=== PATIENT | female | born 1935 | race Caucasian/White ===

== ENCOUNTER 2019-06-16 21:05 | Inpatient (IN) | payer OTHER, MEDICAID ==
[~2019-06-16] VITALS: Ht 152.4 cm; Wt 16.2 kg
[~2019-06-16 21:05] MED LIST: ALBUAER3 IN; ASPI-404 PO; ASPI81CH43 PO; ATOR20TA50 PO; CHOL20007 PO; FAM20T PO; FURO1TAB31 PO; LEVO250T19 PO; LISI10TA6 PO; MET25T PO; POTA-220 PO
[2019-06-16 21:42] LABS: Basophils # (auto) 0 uL; Basophils % (auto) 0.4 % (0.0-2.0); Eosinophils # (auto) 0.1 uL; Eosinophils % (auto) 1.5 % (0.0-7.0); Hematocrit 36.8 % (36.0-46.0); Hemoglobin 11.8 g/dL (12.2-16.2); Lymphocytes # (auto) 1.1 uL; Lymphocytes % (auto) 13.9 % (10.0-50.0); Mean Corpuscular Hemoglobin 27.8 pg (28.0-32.0); Mean Corpuscular Hgb Conc. 32.1 g/dL (32.0-36.0); Mean Corpuscular Volume 86.8 fL (80.0-100.0); Monocytes # (auto) 0.7 uL; Monocytes % (auto) 9.1 % (0.0-12.0); Neutrophils # (auto) 6.2 uL; Neutrophils % (auto) 75.1 % (37.0-80.0); Platelet Count (auto) 288 10^3/uL (140-450); Red Blood Cells 4.24 10^6/uL (4.0-5.20); Red Cell Distribution Width 15.5 % (11.8-14.3); White Blood Cell 8.2 10^3/uL (4.4-10.8)
[2019-06-16 22:04] LABS: Albumin 2.4 g/dL (3.4-5.0); Anion Gap 4 (5-15); Blood Urea Nitrogen 17 mg/dL (7-18); Calcium 8.1 mg/dL (8.5-10.1); Carbon Dioxide 32 mmol/L (21-32); Chloride 104 mmol/L (98-107); Glucose 113 mg/dL (74-106); Magnesium 2.4 mg/dL (1.6-2.6); Potassium 3.6 mmol/L (3.5-5.1); Sodium 140 mmol/L (136-145)
[2019-06-16 22:10] LABS: Alanine Aminotransferase 8 U/L (13-56); Alkaline Phosphatase 83 U/L (45-117); Aspartate Aminotransferase 12 U/L (15-37); BUN/Creatinine Ratio 22.7; Bilirubin, Total 0.5 mg/dL (0.2-1.0); GFR African American 95 mL/min; GFR Non-African American 78 mL/min; Total Protein 6.5 g/dL (6.4-8.2)
[2019-06-17] MEDS ORDERED: ALBUTEROL SULF 2.5 MG/0.5ML(0.5%) NEB SOLN NEB ONE (05:30)
[2019-06-17] MEDS ORDERED: IPRATROPIUM BROM 0.5 MG/2.5ML INH SOL NEB ONE (05:30)
[2019-06-17] MEDS ORDERED: methylPREDNISolone SOD SUCC 125 MG/2 ML VL IV ONE (05:30)
[2019-06-17] MEDS ORDERED: MORPHINE SULF INJ 2 MG/ML SYRINGE 1ML IV PRN (06:00)
[2019-06-17] MEDS ORDERED: FUROSEMIDE 20 MG/2 ML VIAL IV ONE ×2 (06:00→13:00)
[2019-06-17] MEDS ORDERED: NITROGLYCERIN 0.4 MG SL TAB SL PRN (06:00)
[2019-06-17 06:18] VITALS: BP 129/61
[2019-06-17] MEDS: BUDESONIDE (INHALATION) 0.5 MG/2 ML NEB NEB SCH ×2 (06:30→18:52)
[2019-06-17] MEDS: IPRATROPIUM BROM 0.5 MG/2.5ML INH SOL NEB SCH ×3 (06:30→18:52)
[2019-06-17] MEDS: LEVALBUTEROL HCL 1.25 MG/3 ML NEB NEB SCH ×3 (06:30→18:52)
--- NOTE | 2019-06-17 07:30 | NUR ---
opening patient arrived at the unit, will f/u with morning assessment
[2019-06-17 08:36] VITALS: BP 127/68
[2019-06-17] MEDS ORDERED: HYOS0.1269 (09:16)
[2019-06-17] MEDS ORDERED: LACT10SO70 PO (09:16)
[2019-06-17] MEDS ORDERED: IPRA0.03 (09:16)
[2019-06-17] MEDS ORDERED: LORA0.5T12 PO (09:16)
[2019-06-17] MEDS ORDERED: PANT40TA2 PO (09:16)
[2019-06-17] MEDS ORDERED: TEMA30CA PO (09:16)
--- NOTE | 2019-06-17 09:26 | NUR ---
CALLING DAUGHTER SHERMAN ENAMORADO POC HOWEVER SHERMAN, IS UNABLE TO ANSWER ADMISSION QUESTIONS AT THIS TIME, SHE STATES TO PLEASE CALL HER BACK IN ABOUT AN HOUR FOR ADMISSION PROCESS. WILL CONTINUE TO MONITOR THIS PATIENT.
[2019-06-17] MEDS ORDERED: DILTIAZEM HCL 120MG ER CAP PO SCH (10:00)
[2019-06-17] MEDS: ASPirin-EC 81 mg tab PO SCH (10:00)
[2019-06-17] MEDS: PANTOPRAZOLE 40 MG TAB PO SCH (10:00)
--- NOTE | 2019-06-17 11:00 | NUR ---
CALLING SHERMAN ENAMORADO 2ND TIME TO GET INFORMATION REGARDING ADMISSION HOWEVER SHERMAN THE DAUGHTER STATES SHE WILL BE HERE TO VISIT IN A FEW HOURS, SHE WOULD LIKE TO ANSWER THE ADMISSION QUESTIONS WHEN SHE GETS HERE
[2019-06-17] MEDS: methylPREDNISolone SOD SUCC 125 MG/2 ML VL IV SCH ×2 (11:12→22:17)
[2019-06-17] MEDS: cefTRIAXone 1GM/50ML D5W 50 ML IV SCH (11:13)
[2019-06-17] MEDS: AZITHROMYCIN 500MG/ 250ML 250 ML IV SCH (11:13)
--- NOTE | 2019-06-17 12:00 | NUR ---
MD LUCRETIA POLANCO, AT BEDSIDE
[2019-06-17 13:16] VITALS: BP 132/61
[2019-06-17 16:50] VITALS: BP 115/60
[2019-06-17] MEDS ORDERED: FUROSEMIDE 40 MG/4 ML VIAL IV ONE (18:15)
--- NOTE | 2019-06-17 19:05 | NUR ---
OPENING NOTE Assumed care of patient; family is at the bedside. Patient is alert and oriented x3. Currently on Oxymizer at 5LPM. Denies pain at this time. Tele monitor on and lead placement checked. Board updated and bed alarm turned on for patient safety. Bed is in low locked position with side rails up x2. Call light is within reach and patient is encouraged to call for assistance when needed. Will continue to monitor for changes PRN.
--- NOTE | 2019-06-17 19:30 | NUR ---
Assisted patient to the bedside commode to void. Patient cleaned and assisted back into bed. Call light within reach and bed alarm on for safety.
[2019-06-17 20:00] VITALS: BP 106/66
--- NOTE | 2019-06-17 21:30 | NUR ---
BED ALARM Bed alarm sounding. Entered room to find patient out of bed on bedside commode. Patient is confused, calling for her daughter. Reoriented and placed back into bed. IV tubing was pulled when patient got out of bed, causing leakage at insertion site. IV disconnected, clean linens provided and bed alarm is on for safety. Call light is within reach; patient re-educated overnight houseperson light use.
[2019-06-17 21:40] VITALS: BP 106/66
[2019-06-17] MEDS ORDERED: METOPROLOL TARTRATE 25 MG TAB PO SCH (22:00)
--- NOTE | 2019-06-17 22:05 | NUR ---
IV INSERTION IV access obtained, via clean sterile technique by inserting 22 gauge catheter at left hand after 2 attempt. IV secured properly. No trauma to site. Patient tolerated well.
--- NOTE | 2019-06-17 22:08 | NUR ---
IV removal IV in left wrist is leaking from insertion site and patient reports pain with flushing. DC'd with clean sterile technique, catheter fully intact. Pressure dressing applied to site. Patient tolerated well.
[2019-06-17] MEDS: ATORVASTATIN 20 MG TAB PO SCH (22:17)
[2019-06-17] MEDS: CARVEDILOL 3.125 MG TAB PO SCH (22:21)
--- NOTE | 2019-06-17 23:33 | NUR ---
Responded to bed alarm. Patient is out of bed standing next to bedside commode. Patient assisted on to commode to void. Patient cleaned and assisted back into bed. Productive cough noted, with expectoration of green tinged mucus. Patient educated on the use of the call light and encouraged to call for assistance when needed. Will continue to monitor for changes PRN.
[2019-06-18] MEDS: LEVALBUTEROL HCL 1.25 MG/3 ML NEB NEB SCH ×5 (00:15→23:59)
[2019-06-18] MEDS: IPRATROPIUM BROM 0.5 MG/2.5ML INH SOL NEB SCH ×5 (00:15→23:59)
--- NOTE | 2019-06-18 04:10 | NUR ---
Patient is refusing labs. Educated patient on the reasoning for labs to be drawn. Patient continues to refuse.
[2019-06-18 04:31] VITALS: BP 106/61
--- NOTE | 2019-06-18 05:41 | NUR ---
Lasix held due to low Bp: 101/59.
[2019-06-18] MEDS: FUROSEMIDE 40 MG/4 ML VIAL IV SCH ×2 (05:42→18:49)
[2019-06-18] MEDS: BUDESONIDE (INHALATION) 0.5 MG/2 ML NEB NEB SCH ×2 (05:58→18:20)
--- NOTE | 2019-06-18 07:45 | NUR ---
Opening Shift Note Assumed care of patient, awake and alert to self only. No S/S of distress/SOB or pain. Instructed on POC and to call for assist PRN, will continue to monitor for changes Q1hr and PRN. Bed alarm on. Bed in lowest position.
[2019-06-18 08:00] VITALS: BP 111/54
--- NOTE | 2019-06-18 08:00 | NUR ---
Opti foam Opti foam applied to sacrum, repositioned patient to side position.
--- NOTE | 2019-06-18 08:15 | NUR ---
IV assessment Assessed IV line and found dried blood under Tegaderm. IV flushes with no c/o pain. Patient states she does not want another IV and will refused a secondary IV start at this time.
[2019-06-18 09:00] VITALS: BP 111/59
[2019-06-18] MEDS: CARVEDILOL 3.125 MG TAB PO SCH ×2 (09:32→22:00)
[2019-06-18] MEDS: cefTRIAXone 1GM/50ML D5W 50 ML IV SCH (09:32)
[2019-06-18] MEDS: methylPREDNISolone SOD SUCC 125 MG/2 ML VL IV SCH ×3 (09:32→22:00)
[2019-06-18] MEDS: PANTOPRAZOLE 40 MG TAB PO SCH (09:33)
[2019-06-18] MEDS: ASPirin-EC 81 mg tab PO SCH (09:33)
[2019-06-18] MEDS: POTASSIUM CHL 20 Meq TABLET PO SCH (09:34)
[2019-06-18] MEDS ORDERED: LISINOPRIL 20 MG TAB PO SCH (10:00)
[2019-06-18] MEDS ORDERED: FUROSEMIDE 40 MG/4 ML VIAL IV SCH (10:00)
--- NOTE | 2019-06-18 10:00 | NUR ---
Transfer to BSC Patient transferred self to BSC with standby assist.
[2019-06-18] MEDS: AZITHROMYCIN 500MG/ 250ML 250 ML IV SCH (10:30)
[2019-06-18 10:44] LABS: Urine WBC None Seen /hpf (0 - 5)
--- NOTE | 2019-06-18 10:46 | NUR ---
Urine sample Urine sample obtained and sent to lab
[2019-06-18 11:02] LABS: Urine Bacteria NONE SEEN /hpf (None Seen); Urine Blood Negative /uL (Negative); Urine Hyaline Cast MOD /lpf (0 - 2); Urine Mucus FEW (None Seen); Urine Specific Gravity 1.014 (1.001-1.035)
[2019-06-18 12:39] VITALS: BP 101/69
--- NOTE | 2019-06-18 12:41 | NUR ---
Family at bedside Daughter Hina at bedside. Provided information from patient's board and care. Copy of info placed in chart.
--- NOTE | 2019-06-18 13:30 | NUR ---
REFUSING LAB ATTEMPTED TO OBTAIN LAB SAMPLE. PATIENT CONTINUES TO REFUSE AND BEGINS TO BECOME COMBATIVE. WILL CONTACT FAMILY AND SEE IF DAUGHTER CAN BE AT BEDSIDE IN ATTEMPT FOR NEXT LAB DRAW.
[2019-06-18 14:43] LABS: Hematocrit 39.2 % (36.0-46.0); Hemoglobin 12.6 g/dL (12.2-16.2); Mean Corpuscular Hemoglobin 27.5 pg (28.0-32.0); Mean Corpuscular Hgb Conc. 32.1 g/dL (32.0-36.0); Mean Corpuscular Volume 85.9 fL (80.0-100.0); Platelet Count (auto) 360 10^3/uL (140-450); Red Blood Cells 4.56 10^6/uL (4.0-5.20); Red Cell Distribution Width 15.4 % (11.8-14.3); White Blood Cell 12.7 10^3/uL (4.4-10.8)
[2019-06-18 14:50] LABS: Band Neutrophils % (manual) 0; Basophils % (manual) 0 (0.0-2.0); Blast Cells 0; Eosinophils % (manual) 0 (0-7); Metamyelocytes % 0; Monocytes % (manual) 0 (0-12); Myelocytes % 0; Promyelocytes % 0; Reactive Lymphocytes 0
[2019-06-18 14:56] LABS: BUN/Creatinine Ratio 26.6; Calcium 8.8 mg/dL (8.5-10.1); Potassium 4.1 mmol/L (3.5-5.1)
[2019-06-18 16:17] LABS: Lymphocytes % (manual) 1 (10.0-50.0)
[2019-06-18 16:18] VITALS: BP 124/68
--- NOTE | 2019-06-18 16:58 | NUR ---
assessment re: ss consult living situation Patient is a 83 year old female who is confused. Prior to admission patient lived at [facility] room and board and functioned with the help of [facility]. I spoke with Yolanda from the room and board and per Yolanda she will take patient back on discharge. I have left a message for Hina bourgeois daughter to return my call [phone]. Waiting for return call back now. Addendum: 06/18/19 at 1709 by Giselle MATHEW Amended: Links added.
--- NOTE | 2019-06-18 18:43 | NUR ---
IV assessment Assessed IV line and found dried blood under Tegaderm. IV flushes with no c/o pain. IV site is asymptomatic. Educated patient on importance of maintaining good IV access. Patient remains confused. Advised patient that primary RN would like to start a new IV. Patient continues to refuse and become agitated.
--- NOTE | 2019-06-18 20:00 | NUR ---
Opening Shift Note Assumed care of patient, awake and noted with increased confusion. No S/S of distress/SOB or pain. Sitter at bedside. Patient assisted to bedside commode as needed. Instructed on POC and to call for assist PRN, will continue to monitor for changes Q1hr and PRN. Bed in low position and call light in reach.
[2019-06-18] MEDS: ATORVASTATIN 20 MG TAB PO SCH ×2 (21:58→22:00)
--- NOTE | 2019-06-18 22:00 | NUR ---
Patient declined all of her bedtime medications. Saline Lock to left hand noted with leakage. Patient received information regarding the need for a new IV. While inserting a 22 gauge to left forearm, patient yelled out and made an attempt to yank out IV. Patient adamantly refused to have new IV inserted. IV d/c to left hand; angiocath intact. Patient tolerated procedure well.
--- NOTE | 2019-06-19 | NUR ---
RT NOTE PT REQUESTED NOT TO BE WAKEN UP FOR 0000 BREATHING TREATMENT. PT STATED THAT IF SHE WAS ASLEEP PLEASE DO NOT WAKE HER UP.
--- NOTE | 2019-06-19 05:30 | NUR ---
22 gauge IV started to left forearm after 2nd attempt by Charge Nurse.
[2019-06-19 06:20] VITALS: BP 128/75
[2019-06-19] MEDS: FUROSEMIDE 40 MG/4 ML VIAL IV SCH ×2 (06:31→18:00)
[2019-06-19] MEDS: BUDESONIDE (INHALATION) 0.5 MG/2 ML NEB NEB SCH ×2 (06:37→18:29)
[2019-06-19] MEDS: LEVALBUTEROL HCL 1.25 MG/3 ML NEB NEB SCH ×3 (06:37→18:29)
[2019-06-19] MEDS: IPRATROPIUM BROM 0.5 MG/2.5ML INH SOL NEB SCH ×3 (06:37→18:29)
--- NOTE | 2019-06-19 06:56 | NUR ---
Patient resting comfortably while receiving AM med nebulizer treatment. No distress noted. Report given to day shift RN.
--- NOTE | 2019-06-19 08:05 | NUR ---
Dr. Zenaida Meyer in to see patient as hospitalist.
[2019-06-19 09:00] VITALS: BP 124/74
[2019-06-19] MEDS: AZITHROMYCIN 500MG/ 250ML 250 ML IV SCH (10:00)
[2019-06-19] MEDS: CARVEDILOL 3.125 MG TAB PO SCH (10:00)
[2019-06-19] MEDS: PANTOPRAZOLE 40 MG TAB PO SCH (10:00)
[2019-06-19] MEDS: cefTRIAXone 1GM/50ML D5W 50 ML IV SCH (10:00)
[2019-06-19] MEDS: ASPirin-EC 81 mg tab PO SCH ×2 (10:00→10:17)
[2019-06-19] MEDS: POTASSIUM CHL 20 Meq TABLET PO SCH (10:00)
[2019-06-19] MEDS: methylPREDNISolone SOD SUCC 125 MG/2 ML VL IV SCH (10:17)
--- NOTE | 2019-06-19 11:07 | NUR ---
Spoke with Jyotsna, upper caser, re discharge and transportation. Jyotsna states she will contact [facility] to see if they will supply transport.
--- NOTE | 2019-06-19 12:15 | NUR ---
Spoke with patient's daughter, Hina, and informed her that patient has been discharged. Informed Hina that we are waiting for transport. Son-in-law, Brijesh: [phone].
[2019-06-19 13:00] VITALS: BP 123/81
--- NOTE | 2019-06-19 13:05 | NUR ---
Spoke with Jyotsna, returned case inspector. She states that [facility] needs information on the patient. Information faxed to [phone].
--- NOTE | 2019-06-19 15:50 | NUR ---
Spoke with Sujatha, from [facility]: [phone]. She states she will send someone today to re-evaluate the patient for hospice.
--- NOTE | 2019-06-19 16:40 | NUR ---
VICTORINO Aguillon, in to see patient for physician eval for hospice.
[2019-06-19 17:00] VITALS: BP 135/72
--- NOTE | 2019-06-19 19:30 | NUR ---
Awilda from [facility] reports ETA for [facility] 1999. Transporting to [facility].
--- NOTE | 2019-06-19 20:00 | NUR ---
Opening Shift Note Assumed care of patient, awake and alert, oriented to self, place, and time, clear speech, follows direction. On oxygen 4L via Oxymizer, even and unlabored respirations, no S/S of distress or SOB. Patient turns independently. Optifoam to sacrum intact, sacrum intact, no redness noted. Bed low locked position with side rails up x 2 and call light within reach, sitter at bedside. Instructed on POC and to call for assist PRN, will continue to monitor for changes Q1hr and PRN.
--- NOTE | 2019-06-19 20:20 | NUR ---
Discharge instructions given as ordered. Encourage to follow up with PMD as instructed. All questions and concerns addressed. Patient verbalized understanding. Medication reconciliation form completed and copy given to patient. IV removed with catheter intact, pressure dressing applied. Telemetry unit returned to ICU. Patient taken to vehicle via wheelchair with all personal belongings, accompanied by staff from [facility]. No distress noted at time of departure.
[2019-06-19 21:08] VITALS: BP 130/74
--- NOTE | 2019-06-22 16:22 | NUR ---
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 Patient was discharged and resumed hospice with [facility].
== END 2019-06-19 20:20 | disposition hospice, home (50) | DRG 291 ==
LOC: EDBD 21:05 → ER 21:20 → TELE 21:21 → TELE-CENTR 06-17 07:30
PROVIDERS: ADMIT Nurse Practitioner Acute Care; ATTEND Family Medicine
DX: I11.0 Hypertensive heart disease with heart failure (principal); J18.1 Lobar pneumonia, unspecified organism; J96.20 Acute and chronic respiratory failure, unspecified whether with hypoxia or hypercapnia; J44.1 Chronic obstructive pulmonary disease with (acute) exacerbation; E44.0 Moderate protein-calorie malnutrition; R64 Cachexia; J44.0 Chronic obstructive pulmonary disease with (acute) lower respiratory infection; I50.23 Acute on chronic systolic (congestive) heart failure; I48.0 Paroxysmal atrial fibrillation; Z99.81 Dependence on supplemental oxygen; G30.9 Alzheimer's disease, unspecified; H91.90 Unspecified hearing loss, unspecified ear; Z51.5 Encounter for palliative care; Z79.82 Long term (current) use of aspirin; Z79.899 Other long term (current) drug therapy
CPT/HCPCS: 36415; 71045; 78582; 80048; 80053; 81001; 83735; 83880; 84484; 85007; 85025; 85027; 85379; 93005; 93306; 93970; 94640; 96365; 96367; 96375; G0378; J0696